=== PATIENT | female | born 1960 | race Caucasian/White ===

== ENCOUNTER 2018-01-23 18:47 | Emergency (ER) | payer OTHER ==
[~2018-01-23] VITALS: Ht 160 cm; Wt 81.7 kg
[~2018-01-23 18:47] MED LIST: NOHOMEMEDICATIONS; NORCO 5-325 TA1 EACH PO; VENTOLIN HFA INH8 GM IH; ZPAK PO
[2018-01-23 19:08] LABS: ABSOLUTE BASOPHILS 0.1 thou/uL (0.0-0.2); ABSOLUTE EOSINOPHILS 0.1 thou/uL (0.0-0.7); ABSOLUTE MONOCYTES 0.9 thou/uL (0.0-1.2); ABSOLUTE NEUTROPHILS 6.5 thou/uL (1.6-8.1); EOSINOPHILS 1.2 %; HEMATOCRIT 48.4 % (37.0-47.0); HEMOGLOBIN 16.2 gm/dL (12.0-15.0); LYMPHOCYTES 27.9 %; MCH 30.1 pg (26.0-34.0); MCHC 33.5 g/dL (28.0-37.0); MCV 89.8 fL (80.0-100.0); MONOCYTES 8.5 %; MPV 8.5 fl. (7.2-11.1); NUCLEATED RBCS 0 /100WBC; PLATELET COUNT* 243 thou/uL (150-400); POLYS 61.4 %; RBC 5.39 mil/uL (4.20-5.00); RDW-CV 14.1 % (10.5-14.5); WBC 10.7 thou/uL (4.0-11.0)
[2018-01-23 19:11] LABS: ANION GAP 6 mmol/L (7-16); BUN 14 mg/dL (7-18); CALCIUM 8.5 mg/dL (8.5-10.1); CHLORIDE 104 mmol/L (98-107); CO2 29 mmol/L (21-32); CREATININE 0.8 mg/dL (0.6-1.3); GLUCOSE 103 mg/dL (70-99); POTASSIUM 3.8 mmol/L (3.5-5.1); SODIUM 139 mmol/L (136-145)
[2018-01-23 19:18] LABS: ALBUMIN 3.8 g/dL (3.4-5.0); ALKALINE PHOSPHATASE 74 U/L (46-116); SGOT 18 U/L (15-37); SGPT 24 U/L (30-65); TOTAL BILIRUBIN 0.2 mg/dL (<0.1-1.0); TOTAL PROTEIN 7.9 g/dL (6.4-8.2); TROPONIN-I LEVEL <0.06 ng/mL (<0.06)
[2018-01-23] MEDS ORDERED: AUGMENTIN 875-1 EACH PO (20:03)
[2018-01-23] MEDS ORDERED: TESSALON PERLE100 MG PO (20:07)
[2018-01-23 20:35] VITALS: BP 152/77
--- NOTE | 2018-01-24 17:18 | EKG ---
[place] [address] ELECTROCARDIOGRAM REPORT Name: BOBBI BOWSER Room: [facility]#: [id number] Admission: 01/23/18 Attend Phys: Discharge: 01/23/18 Date of : 60 Report #: [id number] THIS REPORT FOR: //name// [facility] ED Test Date: 2018-01-23 Test Time: 18:53:01 Pat Name: BOBBI BOWSER Department: Room: Gender: F Obiee Lead Developer: YOJANA : 1960 Requested By: Peyton Heard Order Number: [id number] MD: Luis Enrique Perry Measurements Intervals [place] Rate: 83 P: -15 CA: 118 QRS: 94 QRSD: 100 T: 34 QT: 378 QTc: 445 Interpretive Statements Sinus rhythm Borderline short CA interval RSR' in V1 or V2, Baseline wander in lead(s) V6 Compared to ECG 07/15/2012 17:20:24 no significant change Electronically Signed On 01-24-2018 17:18:36 CDT by Luis Enrique Perry [email or web address] <ELECTRONICALLY SIGNED> By: Luis Enrique Perry MD, [facility] 01/24/18 1718 52 52 Luis Enrique Perry MD, [facility] /EPI
== END 2018-01-23 20:37 | disposition home or self-care (01) ==
LOC: M.ERS 18:47
PROVIDERS: Physician Assistant Surgical
DX: J40 Bronchitis, not specified as acute or chronic (principal); F17.200 Nicotine dependence, unspecified, uncomplicated

== ENCOUNTER → 2019-03-05 | Outpatient (CLI) | payer BC ==
[~2019-03-05] MED LIST changes: +AUGMENTIN 875-1 EACH PO; +NORCO 5-325 TA1 EAC1 PO; +TESSALON PERLE100 MG PO
== END ==
LOC: M.ULTRA 08:59
DX: N85.2 Hypertrophy of uterus (principal); R93.89 Abnormal findings on diagnostic imaging of other specified body structures; D25.9 Leiomyoma of uterus, unspecified; R63.5 Abnormal weight gain; R68.89 Other general symptoms and signs; R10.9 Unspecified abdominal pain

== ENCOUNTER → 2020-11-12 | Outpatient (CLI) | payer BC | LOC: M.CT 14:00 | PROVIDERS: ATTEND Specialist | DX: Z12.2 Encounter for screening for malignant neoplasm of respiratory organs (principal) ==